=== PATIENT | male | born 1955 | race Caucasian/White ===

== ENCOUNTER 2016-12-06 00:40 | Emergency (ER) | payer BC, MEDICARE ==
--- NOTE | 2016-12-06 01:02 | ERNOTE ---
Medical Problem HPI - General Time Seen by Provider: 12/06/16 00:51 Source: patient Exam Limitations: no limitations - Immun/Allergies/Home Medications Allergies/Adverse Reactions: Allergies No Known Allergies Allergy (Unverified 12/06/16 01:05) Home Medications: HOME MEDICATIONS Albuterol Sulfate [Albuterol Sulfate 0.63 MG/3ML] 0.63 mg IH BID 12/06/16 [Last Taken Unknown] Aspirin [Aspirin EC] 325 mg PO DAILY 12/06/16 [Last Taken Unknown] Bumetanide 2 mg PO DAILY 12/06/16 [Last Taken Unknown] Desvenlafaxine Succinate [Pristiq] 100 mg PO HS 12/06/16 [Last Taken Unknown] Dextromethorphan HBr/Quinidine [Nuedexta 20-10 mg Capsule] 1 each PO DAILY 12/06 [Last Taken Unknown] Doxazosin Mesylate [Cardura] 1 mg PO DAILY 12/06/16 [Last Taken Unknown] Insul NPH Hu Rec/Ins Rg Hu Rec [Novolin 70/30] 33 units SC BID 12/06/16 [Last Taken Unknown] Isosorbide Mononitrate 20 mg PO DAILY 12/06/16 [Last Taken Unknown] LORazepam [Ativan] 1 mg PO DAILY 12/06/16 [Last Taken Unknown] LORazepam [Ativan] 2 mg PO HS 12/06/16 [Last Taken Unknown] Metoprolol Tartrate 100 mg PO BID 12/06/16 [Last Taken Unknown] Multivitamin [Multivitamins] 1 each PO DAILY 12/06/16 [Last Taken Unknown] Warfarin Sodium [Coumadin] 2.5 mg PO HS 12/06/16 [Last Taken Unknown] amLODIPine BESYLATE [Norvasc] 10 mg PO DAILY 12/06/16 [Last Taken Unknown] - History of Present History Narrative: Patient is a 61-year-old diabetic hypertensive male who was recently 4 days ago discharged from [facility]. Patient is adamant that he no longer wanted to go to [facility]. Patient is brought in by a very concerned son and nephew for extreme lethargy multiple falls and difficulty breathing and difficulty sleeping. There is no history of chest pains. Patient does occasionally have issues with breathing such as difficulty breathing. Patient's nephew states there was an episode of the patient turned blue at home prior to presentation to the ER and they feel that he stopped breathing. The patient has sleep apnea. Upon presentation his oxygen saturation on room air is 59% and the patient appears exhausted Review of Systems - Narrative Narrative: I am unable to get a very reliable review of systems as the patient is too lethargic to speak however the son alludes to the fact that the patient has been extremely lethargic not eating and the blood sugars have been in the 230s range Physical Exam - Physical Exam General Appearance: Present: other - morbidly obese male appears older than stated age. He is resting comfortably however is his respiratory rate is rapid. Head Exam: Present: normal inspection, no evidence of injury Eye Exam: Normal inspection: bilateral, PERRL: bilateral, EOMI: bilateral Ears, Nose, Throat: Present: normal pharynx Neck: Present: normal inspection, nontender, supple Respiratory: Present: other - patient is breathing rapidly at a rate of 20/m however they are not labored and I do not hear any wheezing Cardiovascular/Chest: Present: regular rate, rhythm, no murmur, normal peripheral pulses Gastrointestinal/Abdominal: Present: normal bowel sounds, nontender, soft, other - extreme morbid abdominal obesity. 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 ED Progress - Results and Orders Patient's Lab Results:: I have reviewed the patient's lab results. - Vital Signs Patient's Vital Signs:: I have reviewed the patient's vital signs. - EKG EKG Comments: NSR with RBBB - X-Ray X-Ray #1 X-Ray: chest Plan - Plan Plan: This patient has multiple very serious medical problems. He has PE he is subtherapeutic on his Coumadin. Shortly he has severe congestive heart failure with his BNP being in excess of 31,000. Troponin is positive at 0.173. Patient 's creatinine is above 3 case was discussed with cristin, our hospitalist and she stated that this patient would not be accepted at this facility. As such I wanted to contact the next closest facility which is [facility] however the patient was adamant that he was not going to go there. Therefore [facility] with consultation in regard to transfer of this patient. Just prior to transferring this patient patient woke up from a deep sleep and appeared disoriented and was yelling and this was becoming slightly agitated. Bedside glucose revealed the patient's blood sugar was 200. Time this examiner will give the patient Ativan 1 mg IV and Haldol 10mg IM and the patient is stable for transfer. Departure - Departure Clinical Impression: Congestive heart failure Qualifiers: Congestive heart failure type: unspecified congestive heart failure type Congestive heart failure chronicity: chronic Qualified Code(s): I50.9 - Heart failure, unspecified Renal failure Qualifiers: Renal failure chronicity: chronic Chronic kidney disease stage: unspecified stage Qualified Code(s): N18.9 - Chronic kidney disease, unspecified Disposition: [facility] Condition: Serious Referrals: Devyn Emery MD [Primary Care Provider] -
[2016-12-06 01:16] LABS: Hematocrit 26.4 % (42.0-52.0); Mean Cell Volume 99.2 fl (78-100); Mean Corpuscular Hemoglobin 30.1 pg (27-31); Mean Corpuscular Hgb Conc 30.3 g/dl (32-36); Mean Platelet Volume 10.7 fl (6.0-9.5); Neutrophil # 7.7 K/mm3 (1.3-6.0); Neutrophil % 81.8 % (42-75.0); Platelet Count 222 K/mm3 (150-450); Red Blood Count 2.66 M/mm3 (4.7-6.0); White Blood Count 9.5 K/mm3 (4.0-10.5)
[2016-12-06 01:29] LABS: INR 1.83 INR (0.90-1.10)
[2016-12-06] MEDS ORDERED: FUROSEMIDE 10 MG/ML VIAL ONE (01:31)
[2016-12-06 01:34] LABS: Troponin I 0.173 ng/ml (0.00-0.10)
[2016-12-06 01:37] LABS: Albumin * 3.1 gm/dl (3.4-5.0); Anion Gap 13.1 mmol/L (6.8-13.8); BUN/Creatinine Ratio 23.1 (9.0-21.6); Bilirubin, Total 0.4 mg/dL (0.0-1.1); CKMB 2.2 ng/mL (0.0-9.0); Ca. Corrected For Albumin 9.3 mg/dL (8.4-10.2); Calcium * 8.9 mg/dL (7.9-10.9); Potassium 5.1 mmol/L (3.4-4.6); Total Protein 7.2 gm/dL (6.2-8.2)
[2016-12-06] MEDS: FUROSEMIDE 10 MG/ML VIAL IV ONE (01:52)
[2016-12-06 02:11] LABS: Urine Bilirubin Negative (NEGATIVE); Urine Blood Negative /ul (NEGATIVE); Urine Ketone Negative (NEGATIVE); Urine Nitrite Negative (NEGATIVE); Urine Protein 30 mg/dL (NEGATIVE); Urine Specific Gravity 1.025 SP.GR. (1.005-1.030); Urine Urobilinogen Normal (NORMAL); Urine pH 5.5 pH (5.0-7.0)
[2016-12-06 02:19] LABS: Urine Amorphous Sediment Few - 1+ (NONE-FEW); Urine Appearance Clear; Urine Bacteria TRACE; Urine Color Yellow; Urine RBC None Seen /hpf (0-5); Urine WBC None Seen /hpf (0-5)
[2016-12-06] MEDS ORDERED: LORazepam 2 MG/ML DISP.SYRIN ONE (03:19)
[2016-12-06] MEDS: LORazepam 2 MG/ML DISP.SYRIN IV ONE (03:20)
[2016-12-06 03:25] VITALS: BP 127/69
[2016-12-06] MEDS ORDERED: HALOPERIDOL DECANOATE 100 MG/ML IM ONE (03:30)
[2016-12-06] MEDS ORDERED: HALOPERIDOL LACTATE 5 MG/ML VIAL ONE ×2 (03:31→03:40)
[2016-12-06] MEDS: HALOPERIDOL LACTATE 5 MG/ML VIAL IM ONE (03:42)
== END 2016-12-06 03:55 | disposition short-term general hospital (02) ==
LOC: ER 00:40
PROC: 4A033R1 Measurement of Arterial Saturation, Peripheral, Percutaneous Approach (ICD-10-PCS; principal; 2016-12-06)
PROC: 0T9B70Z Drainage of Bladder with Drainage Device, Via Natural or Artificial Opening (ICD-10-PCS; 2016-12-06)
DX: I50.9 Heart failure, unspecified (principal); N18.9 Chronic kidney disease, unspecified; Z79.01 Long term (current) use of anticoagulants; E11.9 Type 2 diabetes mellitus without complications; Z79.4 Long term (current) use of insulin